=== PATIENT | female | born 1980 | race Caucasian/White ===

== ENCOUNTER 2017-03-14 19:46 | Emergency (ER) | payer OTHER ==
[2017-03-14 20:42] LABS: Urine Bilirubin Negative (NEGATIVE); Urine Blood Negative /ul (NEGATIVE); Urine Ketone Negative (NEGATIVE); Urine Nitrite Negative (NEGATIVE); Urine Protein Negative (NEGATIVE); Urine Urobilinogen Normal (NORMAL)
--- NOTE | 2017-03-14 20:43 | ERNOTE ---
Medical Problem HPI - Narrative Date of Service: 03/14/17 - General Chief Complaint: General Assessment Time Seen by Provider: 03/14/17 20:24 Source: patient Exam Limitations: no limitations - Immun/Allergies/Home Medications Immunizations: IMMUNIZATION HX Immunizations Up to Date Yes History of Influenza Vaccine No Hx Pneumococcal Vaccination No Allergies/Adverse Reactions: Allergies Penicillins Allergy (Intermediate, Verified 03/14/17 19:57) Nausea Home Medications: HOME MEDICATIONS Promethazine HCl [Phenergan] 12.5 mg PO PRN PRN 09/16/13 [Last Taken 09/15/13 20 :00] SUMAtriptan SUCCINATE [Imitrex] 100 mg PO PRN PRN 06/08/14 [Last Taken Unknown] SUMAtriptan SUCCINATE [Sumavel Dosepro] 6 mg SQ PRN PRN 06/08/14 [Last Taken Unknown] ALPRAZolam [Xanax] 0.5 mg PO TID 08/13/14 [Last Taken Unknown] Ascorbic Acid [Vitamin C] 500 mg PO DAILY 08/13/14 [Last Taken Unknown] Magnesium 250 mg PO BID 08/13/14 [Last Taken Unknown] Multivitamin [Multi-Vitamin Daily] 1 tab PO DAILY 08/13/14 [Last Taken Unknown] tiZANidine HCL [Zanaflex] 4 mg PO HS 08/13/14 [Last Taken Unknown] Cholecalciferol (Vitamin D3) [Vitamin D3] 4,000 unit PO DAILY 03/14/17 [Last Taken Unknown] Cyanocobalamin (Vitamin B-12) [Vitamin B12] 2,500 mcg PO DAILY 03/14/17 [Last Taken Unknown] - History of Present History Narrative: Pt. comes in with c/o numbness, tingling, and L sided weakness for months. Pt. was seen by her [facility] in [place] for this yesterday and labs were drawn and she was called this afternoon by the lab at [facility] and was told to come here as her potassium was critically high. Pt. denies any CP, SOB, fever, recent illness, dizziness, lightheadedness, or seizure activity. Pt. sees a neurologist for similar symptoms and for migraines. Review of Systems - Review of Systems Constitutional: Present: no symptoms reported. Absent: recent illness, fever, chills, weakness, fatigue, malaise EYE: Present: no symptoms reported ENT: Present: no symptoms reported Respiratory: Present: no symptoms reported. Absent: shortness of breath, cough , wheezing Cardiology: Present: no symptoms reported. Absent: chest pain, palpitations, edema Gastrointestinal/Abdominal: Present: no symptoms reported. Absent: nausea, vomiting, diarrhea Genitourinary: Present: frequency. Absent: no symptoms reported Musculoskeletal: Present: no symptoms reported. Absent: back pain, joint pain Skin: Present: no symptoms reported. Absent: rash, change in hair/nails Neurological: Present: headache - occasional not at this time, weakness - L arm and hand, tingling, other - stiffness L arm. Absent: dizziness/light-headedness , numbness Endocrine: Present: increased urine. Absent: excessive sweating, flushing, intolerance to heat, intolerance to cold, increased hunger, increased thirst, unexplained weight gain, unexplained weight loss Hematologic/Lymphatic: Present: no symptoms reported All Other Systems: All systems neg except as marked - Patient's Past Medical History Patient History - Medical: Anemia, Migraines Patient History - Cardiac/Respiratory: No pertinent hx Patient History - Cancer: No Hx of Cancer Patient History - Surgical Procedures: No surgical history Patient History - Other: None LMP (Calendar): 03/02/17 - Social History Living Situations: home Psych History: No pertinent hx Smoking Status: Never smoker Alcohol Use: occasionally Drug Use: none - Immunizations Immunizations Up to Date: Yes Hx Pneumococcal Vaccination: No History of Influenza Vaccine: No Physical Exam - Physical Exam General Appearance: Present: wd/wn, alert, no apparent distress Head Exam: Present: normal inspection, no evidence of injury Eye Exam: Normal inspection: bilateral, PERRL: bilateral, EOMI: bilateral Ears, Nose, Throat: Present: normal except -, nasal congestion, normal pharynx. Absent: abnormal TM (R), abnormal TM (L) Neck: Present: normal inspection, nontender, supple, full range of motion. Absent: lymphadenopathy (R), lymphadenopathy (L) Respiratory: Present: no respiratory distress, normal breath sounds, no accessory muscle use, chest nontender, lungs clear Cardiovascular/Chest: Present: regular rate, rhythm, no murmur, normal peripheral pulses Gastrointestinal/Abdominal: Present: normal bowel sounds, nontender, nondistended, soft, no organomegaly Back Exam: Present: normal inspection, normal range of motion, no CVA tenderness , no vertebral tenderness Extremity Exam: Present: normal inspection, non-tender, normal range of motion, no edema Neurological Exam: Present: alert, oriented, normal mood/affect, 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 Absent: pallor, skin rash ED Progress - Date and Time Seen: Date and Time: 03/14/17 20:33 Discussed options with pt. and she states that she just had a CT scan and MRI last month for similar symptoms and it was negative so she does not want any more imaging for this. - Results and Orders Patient's Lab Results:: I have reviewed the patient's lab results. Results and Orders: Pt. labs are all WNL - Vital Signs Patient's Vital Signs:: I have reviewed the patient's vital signs. Vital Signs: Vital Signs 03/14/17 19:52 Temperature 37.1 C Pulse Rate 85 Respiratory 18 Rate Blood Pressure 155/99 O2 Sat by Pulse 100 Oximetry - Progress/Reassessment Chief Complaint: General Assessment Progress:: Unchanged Departure Clinical Impression: Muscle weakness - Departure Disposition: Home self-care Condition: Good Instructions: Electrolytes Test Additional Instructions: Please follow up with your primary provider and Dr Acosta to discuss further testing
[2017-03-14 20:47] LABS: Mean Corpuscular Hemoglobin 30.8 pg (27-31); Mean Corpuscular Hgb Conc 34.2 g/dl (32-36); Mean Platelet Volume 8.9 fl (6.0-9.5); Neutrophil # 4.4 K/mm3 (1.3-6.0); Neutrophil % 54.6 % (42-75.0); Platelet Count 317 K/mm3 (150-450); Red Blood Count 4.22 M/mm3 (4.2-5.4); Red Cell Distribution Width 11.6 % (11.5-14.0); White Blood Count 8.1 K/mm3 (4.0-10.5)
[2017-03-14 20:55] LABS: Urine Appearance Clear; Urine Bacteria TRACE; Urine Color Pale Yellow; Urine RBC None Seen /hpf (0-5); Urine WBC None Seen /hpf (0-5)
[2017-03-14 21:01] LABS: Anion Gap 9.5 mmol/L (6.8-13.8); BUN/Creatinine Ratio 19.6 (9.0-21.6); Calcium * 9.4 mg/dL (7.9-10.9); Estimated Creat Clear 68.1; Phosphorus 3.6 mg/dL (2.2-4.2); Potassium 3.5 mmol/L (3.4-4.6)
[2017-03-14 21:43] VITALS: BP 128/85
== END 2017-03-14 21:19 | disposition home or self-care (01) ==
LOC: ER 19:46
DX: M62.81 Muscle weakness (generalized) (principal); D64.9 Anemia, unspecified
CPT/HCPCS: 36415; 80048; 81001; 83605; 83735; 84100; 85025; 99284